=== PATIENT | male | born 2005 | race Two or more races ===

== ENCOUNTER 2025-07-02 13:27 | Emergency (ER) | payer OTHER ==
[~2025-07-02] VITALS: Ht 170.2 cm; Wt 59.0 kg
== END 2025-07-02 20:56 | disposition home or self-care (01) ==
LOC: ER 13:28
DX: M79.644 Pain in right finger(s) (principal); Z88.8 Allergy status to other drugs, medicaments and biological substances; S56.411A Strain of extensor muscle, fascia and tendon of right index finger at forearm level, initial encounter